=== PATIENT | male | born 2005 | race Hispanic/Latino ===

== ENCOUNTER 2025-07-06 19:45 | Emergency (ER) | payer OTHER ==
[2025-07-06] MEDS ORDERED: Lidocaine Viscous Sol 2% 15 ml UD Cup ONE (21:17)
== END 2025-07-06 22:42 | disposition home or self-care (01) ==
LOC: CSHERS 19:45
DX: T16.1XXA Foreign body in right ear, initial encounter (principal); W44.F4XA Insect entering into or through a natural orifice, initial encounter
CPT/HCPCS: 69200; 99282

== ENCOUNTER 2025-08-07 04:41 | Emergency (ER) | payer OTHER | END 2025-08-07 05:25 | disposition home or self-care (01) | LOC: CSHERS 04:41 | DX: J00 Acute nasopharyngitis [common cold] (principal); J32.0 Chronic maxillary sinusitis; R59.0 Localized enlarged lymph nodes | CPT/HCPCS: 87081; 87428; 87430; 99283 ==